=== PATIENT | male | born 1990 | race African-American/Black ===

== ENCOUNTER 2018-03-12 07:28 | Emergency (ER) | payer OTHER ==
[~2018-03-12] VITALS: Ht 182.9 cm; Wt 70.3 kg
[2018-03-12 07:56] LABS: HEMATOCRIT 37.4 % (42.0-52.0); HEMOGLOBIN 11.9 gm/dL (14.0-18.0); MCH 23.8 pg (26.0-34.0); MCHC 31.9 g/dL (28.0-37.0); MCV 74.7 fL (80.0-100.0); PLATELET COUNT 326 thou/uL (150-400); RBC 5.01 mil/uL (4.50-6.00); WBC 6.8 thou/uL (4.0-11.0)
[2018-03-12 08:06] LABS: ANION GAP 19 mmol/L (7-16); BUN 7 mg/dL (7-18); CALCIUM 8.1 mg/dL (8.5-10.1); CHLORIDE 107 mmol/L (98-107); CO2 20 mmol/L (21-32); CREATININE 1.2 mg/dL (0.7-1.3); GLUCOSE 179 mg/dL (74-106); SODIUM 146 mmol/L (136-145)
[2018-03-12 08:08] LABS: POTASSIUM 2.8 mmol/L (3.5-5.1)
[2018-03-12 08:10] LABS: INR 1.1; PROTIME 11.3 Seconds (9.3-11.4)
[2018-03-12 08:13] LABS: ALBUMIN 3.8 g/dL (3.4-5.0); SALICYLATE 5.6 mg/dL (2.8-20.0); SGOT 25 U/L (15-37); SGPT 24 U/L (30-65); TOTAL BILIRUBIN 0.1 mg/dL (<0.1-1.0); TOTAL PROTEIN 8.8 g/dL (6.4-8.2)
[2018-03-12 08:29] LABS: ABSOLUTE NEUTROPHILS 1.7 thou/uL (1.4-8.2); ANISOCYTOSIS 2+; ATYPICAL LYMPHS 4 %; HYPOCHROMASIA 1+
[2018-03-12 09:30] LABS: URINE BILIRUBIN NEGATIVE (Negative); URINE BLOOD NEGATIVE (Negative); URINE CLARITY CLEAR; URINE COLOR YELLOW; URINE GLUCOSE-RANDOM* NEGATIVE (Negative); URINE KETONES NEGATIVE (Negative); URINE LEUKOCYTES NEGATIVE (Negative); URINE NITRITE NEGATIVE (Negative); URINE PROTEIN (DIPSTICK) NEGATIVE (Negative); URINE SPECIFIC GRAVITY >= 1.030 (1.005-1.035); URINE UROBILINOGEN 0.2 E.U./dl (0.2-1.0)
[2018-03-12 09:37] LABS: AMP/METHAMP Negative (Negative); BARBITURATES Negative (Negative); BENZODIAZEPINES Negative (Negative); COCAINE Negative (Negative); METHADONE Negative (Negative); OPIATES Negative (Negative); PCP Negative (Negative)
== END 2018-03-12 11:25 | disposition home or self-care (01) ==
LOC: ER 07:28
PROVIDERS: Emergency Medicine
DX: T79.4XXA Traumatic shock, initial encounter (principal); S09.90XA Unspecified injury of head, initial encounter; E87.6 Hypokalemia; F10.129 Alcohol abuse with intoxication, unspecified; E87.2 Acidosis; J45.909 Unspecified asthma, uncomplicated; F17.210 Nicotine dependence, cigarettes, uncomplicated; Z91.02 Food additives allergy status; W22.8XXA Striking against or struck by other objects, initial encounter; Y93.89 Activity, other specified; Y92.89 Other specified places as the place of occurrence of the external cause; Y99.8 Other external cause status